=== PATIENT | female | born 1980 | race Caucasian/White ===

== ENCOUNTER 2019-02-10 13:25 | Outpatient (CLI) | payer OTHER | END 2019-02-10 23:59 | disposition home or self-care (01) | LOC: CFH 13:25 | PROVIDERS: ATTEND Obstetrics & Gynecology | DX: N64.52 Nipple discharge (principal); N63.10 Unspecified lump in the right breast, unspecified quadrant | CPT/HCPCS: 76641; 77066; G0279 ==